=== PATIENT | female | born 1985 | race Caucasian/White ===

== ENCOUNTER 2024-04-30 17:36 | Emergency (ER) | payer SELFPAY ==
[2024-04-30 17:42] VITALS: BP 116/83; PULSE 88; RESP 16; TEMP 36.2; O2SAT 96
--- NOTE | 2024-04-30 18:27 | ED.DENTAL ---
HPI - Dental/Oral General Chief complaint: Dental/Oral Stated complaint: Dental Pain Time Seen by Provider: 04/30/24 18:28 Source: patient, RN notes reviewed and old records reviewed Mode of arrival: ambulatory Limitations: no limitations History of Present Illness HPI Narrative: Patient presents with complaints of right lower dental pain that has been present for 2 weeks, worsening. She reports that she has multiple dental caries and Related Data Allergies Allergy/AdvReac Type Severity Reaction Status Date / Time No Known Allergies Allergy Verified 04/30/24 17:49 Review of Systems Review of Systems: All systems reviewed & are unremarkable except as noted in HPI and below Constitutional: Constitutional: Reports no additional constitutional complaints ENT: Reports system reviewed and no additional complaints, except as documented Cardiovascular: Cardiovascular: Reports no additional cardiovascular complaints Respiratory: Respiratory: Reports no additional respiratory complaints Gastrointestinal: Gastrointestinal: Reports no additional gastrointestinal complaints [facility] Family History Family History (Updated 08/28/13 @ 10:28 by DOCTOR UNKNOWN) Other Cerebrovascular accident Social History Social History Smoking status: Current every day smoker Alcohol intake: current Comments At the time of my signature, I reviewed and agree with the nursing past medical, surgical, social, and family history. There is no relevant family history pertinent to the patient complaint. Exam Const: General: cooperative, no acute distress, alert and awake Orientation/consciousness: oriented to person, oriented to place and oriented to time HENMT: Head: normal to inspection Resp: Effort & Inspection: normal respiratory effort and able to speak in complete sentences Auscultation: clear to auscultation bilaterally, no crackles, no rales, no rhonchi and no wheezes Cardio: Palpation: normal PMI Rate: regular rate Rhythm: regular rhythm Heart sounds: S1 normal heart sound present and S2 normal heart sound present Neuro: General: oriented to person, oriented to place and oriented to time Cranial nerves: Yes CN's II-XII intact bilaterally Psych: Appearance: grossly normal Thought process: Normal thought process present Insight: Good insight present (Psych) Judgement: Good judgement present (Psych) Course Course Level of Care: Express Care Visit Vital Signs Vital signs: Vital Signs Temperature 97.1 F L 04/30/24 17:42 Pulse Rate 88 04/30/24 17:42 Respiratory Rate 16 04/30/24 17:42 Blood Pressure 116/83 04/30/24 17:42 Pulse Oximetry 96 04/30/24 17:42 Oxygen Delivery Room Air 04/30/24 17:42 Temperature 97.1 F L 04/30/24 17:42 Pulse Rate 88 04/30/24 17:42 Respiratory Rate 16 04/30/24 17:42 Blood Pressure 116/83 04/30/24 17:42 Pulse Oximetry 96 04/30/24 17:42 Oxygen Delivery Room Air 04/30/24 17:42 Reviewed Discharge Plan Discharge Clinical Impression: Dental infection Patient Disposition: Home, Self-Care Condition: Stable Instructions: Antibiotic Form, Dental Abscess (ED) Additional Instructions: Take medications as prescribed. Follow with primary care provider. Emergency department for new or worsening symptoms Follow-up with dentist as soon as possible Patient Language: [place] Prescriptions: New clindamycin HCl 300 mg capsule 300 mg PO TID Qty: 30 0RF ondansetron 4 mg tablet,disintegrating 4 mg PO Q6H PRN (Reason: nausea and vomiting) Qty: 20 0RF Follow-up/Referrals: PHYSICIAN,INSURANCE SALESPERSON [Primary Care Provider] - Time of Disposition: 18:33
== END 2024-04-30 18:35 | disposition home or self-care (01) ==
PROVIDERS: Emergency Provider Nurse Practitioner Family
DX: K04.7 Periapical abscess without sinus (principal); F17.200 Nicotine dependence, unspecified, uncomplicated
CPT/HCPCS: 99213; G0463